=== PATIENT | male | born 1965 | race Caucasian/White ===

== ENCOUNTER 2018-06-09 10:08 | Emergency (ER) | payer OTHER ==
[~2018-06-09] VITALS: Ht 162.6 cm; Wt 77.1 kg
--- NOTE | 2018-06-09 10:25 | NUR ---
PT WAS EVALUATED BY DR CROSS. PT WAS D/C'd TO HOME. D/C INSTRUCTIONS GIVEN TO THE PT.
[2018-06-09 10:27] VITALS: BP 151/89
== END 2018-06-09 10:29 | disposition home or self-care (01) ==
LOC: ER 10:08
DX: S01.81XA Laceration without foreign body of other part of head, initial encounter (principal); S00.83XA Contusion of other part of head, initial encounter; W01.198A Fall on same level from slipping, tripping and stumbling with subsequent striking against other object, initial encounter; Y93.89 Activity, other specified; Y92.89 Other specified places as the place of occurrence of the external cause; Y99.8 Other external cause status
CPT/HCPCS: A4663

== ENCOUNTER 2018-10-19 14:03 | Emergency (ER) | payer BC, OTHER ==
[~2018-10-19] VITALS: Ht 167.6 cm; Wt 72.6 kg
[2018-10-19] MEDS ORDERED: HYDROCODONE/APAP 5-325MG TABLET ONE (14:46)
[2018-10-19] MEDS: HYDROCODONE/APAP 5-325MG TABLET PO ONE (14:48)
--- NOTE | 2018-10-19 15:35 | NUR ---
Patient discharged to home in stable conditon. Written and verbal after care instructions given. Patient verbalizes understanding of instructions.
[2018-10-19 15:36] VITALS: BP 144/90
== END 2018-10-19 15:37 | disposition home or self-care (01) ==
LOC: ER 14:03
DX: S52.532A Colles' fracture of left radius, initial encounter for closed fracture (principal); W18.39XA Other fall on same level, initial encounter; Y93.89 Activity, other specified; Y92.89 Other specified places as the place of occurrence of the external cause; Y99.8 Other external cause status
CPT/HCPCS: 73090; 73110; A4663

== ENCOUNTER 2019-01-06 15:04 | Emergency (ER) | payer BC, OTHER ==
[~2019-01-06] VITALS: Ht 167.6 cm; Wt 72.6 kg
[2019-01-06] MEDS ORDERED: LISI-603 PO (15:13)
--- NOTE | 2019-01-06 15:20 | NUR ---
PATIENT WAS MSE BY DR WHEATLEY IN ROOM.
--- NOTE | 2019-01-06 15:31 | NUR ---
Patient discharged to home in stable conditon. Written and verbal after care instructions given. Patient verbalizes understanding of instructions.
[2019-01-06 15:35] VITALS: BP 149/98
== END 2019-01-06 15:40 | disposition home or self-care (01) ==
LOC: ER 15:05
DX: I10 Essential (primary) hypertension (principal); Z76.0 Encounter for issue of repeat prescription; Z79.899 Other long term (current) drug therapy
CPT/HCPCS: A4663

== ENCOUNTER 2019-02-16 16:17 | Emergency (ER) | payer OTHER ==
[~2019-02-16] VITALS: Ht 167.6 cm; Wt 72.6 kg
[~2019-02-16 16:17] MED LIST: LISI-603 PO
--- NOTE | 2019-02-16 16:25 | NUR ---
PT IS IN ROOM #2A. DR MEHTA EVALUATED THE PT.
--- NOTE | 2019-02-16 17:12 | NUR ---
PT WAS D/C'd TO HOME. D/C INSTRUCTIONS GIVEN TO THE PT.
[2019-02-16 17:26] VITALS: BP 136/78
== END 2019-02-16 17:28 | disposition home or self-care (01) ==
LOC: ER 16:17
DX: S60.132A Contusion of left middle finger with damage to nail, initial encounter (principal); I10 Essential (primary) hypertension; Z79.899 Other long term (current) drug therapy; X58.XXXA Exposure to other specified factors, initial encounter; Y93.89 Activity, other specified; Y92.89 Other specified places as the place of occurrence of the external cause; Y99.8 Other external cause status
CPT/HCPCS: 11740; 73140; A4663

== ENCOUNTER 2021-04-20 15:33 | Emergency (ER) | payer BC ==
[~2021-04-20] VITALS: Ht 170.2 cm; Wt 74.8 kg
[~2021-04-20 15:33] MED LIST changes: -LISI-603 PO; +LISI20TA30 PO
--- NOTE | 2021-04-20 15:45 | NUR ---
PATIENT WAS MSE BY DR GOODE IN ROOM 05A.
--- NOTE | 2021-04-20 15:55 | NUR ---
Patient discharged to home in stable condition. Written and verbal after care instructions given. Patient verbalizes understanding of instructions. Stressed follow up or return to ER for worsening s/s.
== END 2021-04-20 15:58 | disposition home or self-care (01) ==
LOC: ER 15:35
DX: S01.01XD Laceration without foreign body of scalp, subsequent encounter (principal); Y00.XXXD Assault by blunt object, subsequent encounter; I10 Essential (primary) hypertension; Z79.899 Other long term (current) drug therapy
CPT/HCPCS: A4663